=== PATIENT | male | born 1940 | race Caucasian/White ===

== ENCOUNTER 2016-10-11 13:30 | Inpatient (IN) | payer MEDICARE, BC ==
[~2016-10-11] VITALS: Ht 175.3 cm; Wt 95.7 kg
[2016-10-11 13:56] VITALS: BP_SYST 145; RESP 18; TEMP 100.1; BMI 31.2
[2016-10-11] MEDS ORDERED: GLUCAGON 1 MG VIAL IM PRN (14:05)
[2016-10-11] MEDS ORDERED: DEXTROSE 50% SYRINGE 50 ML IV PRN (14:05)
[2016-10-11] MEDS ORDERED: PROMETHAZINE 25 MG/ML VIAL IV PRN (14:05)
[2016-10-11] MEDS: SODIUM CHLOR 0.9% W/KCL 20MEQ 1,000 ML IV SCH (14:58)
[2016-10-11] MEDS: METHYLPRED SOD SUCC 125 MG/2 ML VIAL IV SCH ×2 (14:59→20:36)
[2016-10-11] MEDS: DUONEB INH SCH ×3 (15:10→22:49)
[2016-10-11 15:13] VITALS: RESP 20
[2016-10-11 15:26] VITALS: Ht 175.3 cm; Wt 95.7 kg
[2016-10-11] MEDS ORDERED: ACETAMINOPHEN 325 MG TAB ONE (15:27)
[2016-10-11] MEDS ORDERED: ACETAMINOPHEN 325 MG TAB PO PRN ×2 (15:30→15:55)
[2016-10-11] MEDS: AZITHROMYCIN 500 MG in SODIUM CHLORIDE 0.9% 250 ML IV SCH (17:16)
[2016-10-11 19:33] VITALS: BP_SYST 134; RESP 18; TEMP 98.8
[2016-10-11] MEDS: *HOME MEDS KEPT IN PHARMACY XX SCH (20:00)
[2016-10-11 23:20] VITALS: BP_SYST 136; RESP 16; TEMP 97.4
[2016-10-11] MEDS: CEFTRIAXONE 1 GM in SODIUM CHLORIDE 0.9% 50 ML IV SCH (23:40)
[2016-10-12] MEDS: SODIUM CHLOR 0.9% W/KCL 20MEQ 1,000 ML IV SCH ×3 (02:07→16:43)
[2016-10-12] MEDS: METHYLPRED SOD SUCC 125 MG/2 ML VIAL IV SCH ×4 (02:19→20:10)
[2016-10-12 03:43] VITALS: BP_SYST 141; RESP 16; TEMP 97.3
[2016-10-12 07:34] VITALS: BP_SYST 153; RESP 16; TEMP 97.4
[2016-10-12] MEDS: *HOME MEDS KEPT IN PHARMACY XX SCH ×2 (07:45→20:00)
[2016-10-12] MEDS: CEFTRIAXONE 1 GM in SODIUM CHLORIDE 0.9% 50 ML IV SCH (07:45)
[2016-10-12] MEDS: DUONEB INH SCH ×5 (07:48→22:54)
[2016-10-12] MEDS ORDERED: METOPROLOL XL 50 MG TAB PO SCH ×2 (09:10→10:43)
[2016-10-12] MEDS ORDERED: amLODIPine 5 MG TAB PO SCH (09:10)
[2016-10-12] MEDS ORDERED: DOXAZOSIN 4 MG TAB PO SCH (09:10)
[2016-10-12] MEDS ORDERED: METFORMIN 500 MG TAB PO SCH (09:10)
[2016-10-12] MEDS ORDERED: CHLORASEPTIC 180 ML BTL PO PRN (09:25)
[2016-10-12] MEDS ORDERED: SOD CHL NASAL SPR 45ML NARE EACH PRN (09:25)
[2016-10-12] MEDS ORDERED: PATIENT OWN MEDICATION PO SCH (10:00)
[2016-10-12] MEDS ORDERED: NON-FORMULARY MEDICATION PO SCH ×6 (10:10)
[2016-10-12 11:19] VITALS: BP_SYST 137; RESP 16; TEMP 97.7
[2016-10-12] MEDS: METFORMIN 500 MG TAB PO SCH ×2 (11:52→20:09)
[2016-10-12] MEDS: DOXAZOSIN 4 MG TAB PO SCH ×2 (11:53→20:08)
[2016-10-12] MEDS: METOPROLOL XL 50 MG TAB PO SCH ×2 (11:54→20:07)
[2016-10-12] MEDS: amLODIPine 5 MG TAB PO SCH (11:55)
[2016-10-12] MEDS: Hydrocodone/APAP 10/325 MG TAB PO PRN ×2 (12:21→16:42)
[2016-10-12] MEDS: AZITHROMYCIN 500 MG in SODIUM CHLORIDE 0.9% 250 ML IV SCH (14:34)
[2016-10-12 14:36] VITALS: BP_SYST 124; RESP 16; TEMP 97.7
[2016-10-12] MEDS: DILAUDID 1 MG/ML AMP IV PRN (19:38)
[2016-10-12 19:55] VITALS: BP_SYST 131; RESP 16; TEMP 97.4
[2016-10-12] MEDS: *HOME MEDS IN MED CART XX SCH (20:00)
[2016-10-12] MEDS: [UNRECOGNIZED DRUG - OTHER] PO SCH (20:09)
[2016-10-12] MEDS: clonazePAM 0.5 MG TAB PO SCH (21:00)
[2016-10-12] MEDS: SOD CHL NASAL SPR 45ML NARE EACH SCH (22:35)
[2016-10-12 22:50] VITALS: BP_SYST 140; RESP 16; TEMP 97.9
[2016-10-13] MEDS: METHYLPRED SOD SUCC 125 MG/2 ML VIAL IV SCH ×4 (01:43→20:37)
[2016-10-13 03:23] VITALS: BP_SYST 156; RESP 16; TEMP 97.8
[2016-10-13] MEDS: SODIUM CHLOR 0.9% W/KCL 20MEQ 1,000 ML IV SCH ×2 (04:48→20:32)
[2016-10-13] MEDS: DUONEB INH SCH ×5 (06:31→22:08)
[2016-10-13 07:34] VITALS: BP_SYST 148; RESP 16; TEMP 97.2
[2016-10-13] MEDS: *HOME MEDS IN MED CART XX SCH ×2 (08:00→20:00)
[2016-10-13] MEDS: *HOME MEDS KEPT IN PHARMACY XX SCH ×2 (08:00→20:00)
[2016-10-13] MEDS: SOD CHL NASAL SPR 45ML NARE EACH SCH ×8 (08:42→22:37)
[2016-10-13] MEDS: GUAIFENESIN ER 600 MG TABCR PO SCH ×2 (08:42→20:51)
[2016-10-13] MEDS: DILAUDID 1 MG/ML AMP IV PRN ×4 (08:44→20:39)
[2016-10-13] MEDS: [UNRECOGNIZED DRUG - OTHER] PO SCH ×2 (08:51→20:49)
[2016-10-13] MEDS: DOXAZOSIN 4 MG TAB PO SCH ×2 (08:52→20:51)
[2016-10-13] MEDS: METFORMIN 500 MG TAB PO SCH ×2 (08:52→21:08)
[2016-10-13] MEDS: amLODIPine 5 MG TAB PO SCH (08:52)
[2016-10-13] MEDS: METOPROLOL XL 50 MG TAB PO SCH ×2 (08:53→20:50)
[2016-10-13] MEDS: OXYMETAZOLINE 0.05% NOSE SPRAY NARE EACH SCH ×2 (08:54→20:49)
[2016-10-13] MEDS: CEFTRIAXONE 1 GM in SODIUM CHLORIDE 0.9% 50 ML IV SCH (08:54)
[2016-10-13] MEDS: Hydrocodone/APAP 10/325 MG TAB PO PRN ×4 (08:59→20:39)
[2016-10-13 12:13] VITALS: BP_SYST 144; RESP 16; TEMP 97.8
[2016-10-13 15:54] VITALS: BP_SYST 141; RESP 16; TEMP 97.7
[2016-10-13] MEDS: AZITHROMYCIN 500 MG in SODIUM CHLORIDE 0.9% 250 ML IV SCH (15:55)
[2016-10-13 20:28] VITALS: BP_SYST 142; RESP 16; TEMP 97.7
[2016-10-13] MEDS: clonazePAM 0.5 MG TAB PO SCH (20:37)
[2016-10-13 23:13] VITALS: BP_SYST 149; RESP 16; TEMP 97.6
[2016-10-14] MEDS: METHYLPRED SOD SUCC 125 MG/2 ML VIAL IV SCH ×3 (01:36→14:14)
[2016-10-14] MEDS: Hydrocodone/APAP 10/325 MG TAB PO PRN ×4 (01:36→14:19)
[2016-10-14] MEDS: SODIUM CHLOR 0.9% W/KCL 20MEQ 1,000 ML IV SCH (01:38)
[2016-10-14 03:01] VITALS: BP_SYST 155; RESP 16; TEMP 97.4
[2016-10-14] MEDS: DUONEB INH SCH ×3 (06:42→14:13)
[2016-10-14] MEDS: DILAUDID 1 MG/ML AMP IV PRN ×3 (07:04→14:19)
[2016-10-14 07:53] VITALS: BP_SYST 144; RESP 16; TEMP 97.7
[2016-10-14] MEDS: *HOME MEDS KEPT IN PHARMACY XX SCH ×2 (08:00→15:24)
[2016-10-14] MEDS: *HOME MEDS IN MED CART XX SCH (08:00)
[2016-10-14] MEDS: CEFTRIAXONE 1 GM in SODIUM CHLORIDE 0.9% 50 ML IV SCH (08:40)
[2016-10-14] MEDS: GUAIFENESIN ER 600 MG TABCR PO SCH (08:41)
[2016-10-14] MEDS: SOD CHL NASAL SPR 45ML NARE EACH SCH ×4 (08:41→14:00)
[2016-10-14] MEDS: OXYMETAZOLINE 0.05% NOSE SPRAY NARE EACH SCH (08:41)
[2016-10-14] MEDS: [UNRECOGNIZED DRUG - OTHER] PO SCH (08:41)
[2016-10-14] MEDS: DOXAZOSIN 4 MG TAB PO SCH (08:42)
[2016-10-14] MEDS: METOPROLOL XL 50 MG TAB PO SCH (08:43)
[2016-10-14] MEDS: METFORMIN 500 MG TAB PO SCH (08:43)
[2016-10-14] MEDS: amLODIPine 5 MG TAB PO SCH (08:44)
[2016-10-14 12:07] VITALS: BP_SYST 144; RESP 16; TEMP 97.8
[2016-10-14 12:18] VITALS: BP_SYST 144; RESP 18; TEMP 97.7
[2016-10-14] MEDS ORDERED: MISSING DOSE XX ONE (14:05)
[2016-10-14 14:46] VITALS: BP_SYST 144; RESP 18; TEMP 97.7
[2016-10-14 15:19] VITALS: RESP 18
== END 2016-10-14 15:34 | disposition home or self-care (01) | DRG 203 ==
LOC: 5THE 13:30 → OBSVTOIN 10-12 09:21
PROVIDERS: ADMIT Internal Medicine; ATTEND Internal Medicine
CPT/HCPCS: 70486; 71020; 71250; 80053; 82947; 85025; 87071; 87077; 87804; 94640; 94799